=== PATIENT | female | born 1960 | race Caucasian/White ===

== ENCOUNTER 2020-04-25 14:20 | Outpatient (REF) | payer MEDICARE, SELFPAY ==
[2020-04-25 15:00] LABS: MANUAL DIFF FLAG NO
[2020-04-25 15:04] LABS: Basophils Percent Auto 0.2 % (0-2); Eosinophils Absolute Auto 0.1 X10*3/uL (0.0-0.4); Eosinophils Percent Auto 1.4 % (0-4); Hematocrit 35.3 % (37-47); Hemoglobin 10.4 g/dl (12.0-16.0); Imm Gran Abs Auto 0.02 X10*3/uL (0.00-0.03); Imm Gran Pct Auto 0.2 % (0.0-0.4); Lymphocytes Absolute Auto 2.2 X10*3/uL (1.2-4.9); Lymphocytes Percent Auto 27.4 % (20-40); Mean Corpuscular HGB Conc 29.5 g/dl (31.0-35.0); Mean Corpuscular Hemoglobin 25.4 pg (27.0-33.0); Mean Corpuscular Volume 86.3 fL (80-98); Mean Platelet Volume 10.4 fL (9.4-12.3); Monocytes Absolute Auto 0.6 X10*3/uL (0.1-1.2); Monocytes Percent Auto 7.7 % (2-11); Neutrophils Absolute Auto 5.1 X10*3/uL (2.0-8.3); Neutrophils Percent Auto 63.1 % (45-73); Platelet Count 262 X10*3/uL (160-400); Red Blood Count 4.09 X10*6/uL (4.20-5.50); Red Cell Distribution Width 15.9 % (11.0-16.0)
[2020-04-25 15:08] LABS: Estimated Average Glucose 157 mg/dL; Hemoglobin A1C 151.2579 umol/L; Hemoglobin A1c % 7.1 %
[2020-04-25 15:22] LABS: Alanine Aminotransferase 30 U/L (0-31); Alkaline Phosphatase 130 U/L (39-117); Anion Gap 13 (12-20); Aspartate Amino Transferase 38 U/L (5-31); Bilirubin Total 0.6 mg/dL (0.0-1.0); Blood Urea Nitrogen 10 mg/dL (9-16); Calcium 8.8 mg/dL (8.4-10.2); Carbon Dioxide 34 mmol/L (22-29); Chloride 96 mmol/L (96-108); Estimated Glomerular Filt Rate > 60; Glucose Random 121 mg/dL (60-115); Magnesium 2.2 mg/dL (1.6-2.6); Potassium 3.7 mmol/l (3.3-5.1); Sodium 139 mmol/L (135-145); Total Protein 7.6 g/dL (6.5-8.0)
[2020-04-25 15:29] LABS: B Type Natriuretic Peptide 66 pg/mL (<100)
[2020-04-25 15:43] LABS: Vitamin D 25-OH Total 21.5 ng/mL (>30)
[2020-04-25 15:51] LABS: Vitamin B12 469 pg/mL (200-900)
[2020-04-25 15:57] LABS: Folate 12.5 ng/mL (> or = 4.0)
[2020-04-28 07:32] LABS: Zinc 73 mcg/dL (60-130)
== END 2020-04-25 14:21 | disposition home or self-care (01) ==
LOC: HO.LAB 14:20
PROVIDERS: Absent Provider Psychiatry & Neurology Psychiatry; PCP Internal Medicine; Visit Provider Internal Medicine Geriatric Medicine
DX: M62.81 Muscle weakness (generalized) (principal); R26.81 Unsteadiness on feet; I50.9 Heart failure, unspecified; Z79.899 Other long term (current) drug therapy
CPT/HCPCS: 36415; 80053; 82306; 82607; 82746; 83036; 83735; 83880; 84443; 84630; 85025

== ENCOUNTER 2021-04-20 10:09 | Outpatient (REF) | payer MEDICARE, SELFPAY ==
[2021-04-20 10:30] LABS: MANUAL DIFF FLAG NO
[2021-04-20 10:36] LABS: Basophils Percent Auto 0.3 % (0-2); Eosinophils Absolute Auto 0.1 X10*3/uL (0.0-0.4); Eosinophils Percent Auto 1.8 % (0-4); Hematocrit 29.5 % (37.0-47.0); Hemoglobin 8.9 g/dl (12.0-16.0); Imm Gran Abs Auto 0.05 X10*3/uL (0.00-0.03); Imm Gran Pct Auto 0.7 % (0.0-0.4); Lymphocytes Absolute Auto 1.7 X10*3/uL (1.2-4.9); Lymphocytes Percent Auto 22.7 % (20-40); Mean Corpuscular HGB Conc 30.2 g/dl (31.0-35.0); Mean Corpuscular Hemoglobin 27.3 pg (27.0-33.0); Mean Corpuscular Volume 90.5 fL (80.0-98.0); Mean Platelet Volume 9.5 fL (9.4-12.3); Monocytes Absolute Auto 0.5 X10*3/uL (0.1-1.2); Neutrophils Absolute Auto 4.9 x10*3/uL (2.0-8.3); Neutrophils Percent Auto 67.5 % (45-73); Platelet Count 202 X10*3/uL (160-400); Red Blood Count 3.26 X10*6/uL (4.20-5.50); Red Cell Distribution Width 14.7 % (11.0-16.0); White Blood Count 7.3 X10*3/uL (4.8-10.8)
[2021-04-20 10:51] LABS: Anion Gap 13 (12-20); Blood Urea Nitrogen 11 mg/dL (9-16); Calcium 9.2 mg/dL (8.4-10.2); Carbon Dioxide 34 mmol/L (22-29); Chloride 95 mmol/L (96-108); Estimated Glomerular Filt Rate 58; Magnesium 2.1 mg/dL (1.6-2.6); Potassium 3.7 mmol/L (3.3-5.1); Sodium 138 mmol/L (135-145)
== END 2021-04-20 10:10 | disposition home or self-care (01) ==
LOC: HO.LAB 10:09
PROVIDERS: PCP Internal Medicine; Visit Provider Internal Medicine Geriatric Medicine
DX: E87.6 Hypokalemia (principal); R53.81 Other malaise
CPT/HCPCS: 36415; 80051; 82310; 82565; 83735; 84520; 85025

== ENCOUNTER 2021-09-21 07:35 | Outpatient (REF) | payer MEDICARE, SELFPAY ==
[2021-09-21 07:47] LABS: MANUAL DIFF FLAG NO
[2021-09-21 08:02] LABS: Basophils Percent Auto 0.3 % (0-2); Eosinophils Absolute Auto 0.2 X10*3/uL (0.0-0.4); Eosinophils Percent Auto 1.9 % (0-4); Hematocrit 28.4 % (37.0-47.0); Hemoglobin 8.4 g/dl (12.0-16.0); Imm Gran Abs Auto 0.03 X10*3/uL (0.00-0.03); Imm Gran Pct Auto 0.4 % (0.0-0.4); Lymphocytes Absolute Auto 1.9 X10*3/uL (1.2-4.9); Lymphocytes Percent Auto 23.8 % (20-40); Mean Corpuscular HGB Conc 29.6 g/dl (31.0-35.0); Mean Corpuscular Hemoglobin 24.2 pg (27.0-33.0); Mean Corpuscular Volume 81.8 fL (80.0-98.0); Mean Platelet Volume 9.8 fL (9.4-12.3); Monocytes Absolute Auto 0.6 X10*3/uL (0.1-1.2); Monocytes Percent Auto 7.7 % (2-11); Neutrophils Absolute Auto 5.2 x10*3/uL (2.0-8.3); Neutrophils Percent Auto 65.9 % (45-73); Platelet Count 198 X10*3/uL (160-400); Red Blood Count 3.47 X10*6/uL (4.20-5.50); Red Cell Distribution Width 16.1 % (11.0-16.0); White Blood Count 7.9 X10*3/uL (4.8-10.8)
[2021-09-21 08:33] LABS: Alanine Aminotransferase 17 U/L (0-31); Albumin Level 3.7 g/dL (3.5-5.0); Alkaline Phosphatase 91 U/L (39-117); Anion Gap 15 (12-20); Aspartate Amino Transferase 17 U/L (5-31); Bilirubin Total 0.5 mg/dL (0.0-1.0); Blood Urea Nitrogen 14 mg/dL (9-16); Calcium 9.1 mg/dL (8.4-10.2); Carbon Dioxide 29 mmol/L (22-29); Chloride 98 mmol/L (96-108); Cholesterol 175 mg/dL; Estimated Glomerular Filt Rate 58; Glucose Fasting 140 mg/dL (60-99); HDL Cholesterol 59 mg/dL; LDL Cholesterol Calculated 95 mg/dl; Potassium 3.8 mmol/L (3.3-5.1); Sodium 138 mmol/L (135-145); Total Protein 7.1 g/dL (6.5-8.0); Triglycerides 106 mg/dL
[2021-09-21 08:54] LABS: Vitamin D 25-OH Total 30.7 ng/mL (>30)
[2021-09-21 09:16] LABS: Creatinine Urine 86.26 mg/dL; Microalbum/Creatinine Ratio Ur 11.5 ug/mg cr
== END 2021-09-21 07:36 | disposition home or self-care (01) ==
LOC: HO.LAB 07:35
PROVIDERS: PCP Internal Medicine; Visit Provider Internal Medicine
DX: E78.5 Hyperlipidemia, unspecified (principal); D64.9 Anemia, unspecified; M51.36 Other intervertebral disc degeneration, lumbar region; N18.9 Chronic kidney disease, unspecified; E11.9 Type 2 diabetes mellitus without complications; E55.9 Vitamin D deficiency, unspecified
CPT/HCPCS: 36415; 80053; 80061; 82043; 82306; 85025

== ENCOUNTER 2021-10-10 12:55 | Outpatient (REF) | payer MEDICARE, SELFPAY ==
--- NOTE | ~2021-10-10 | MM_ITS ---
EXAMINATION: MM SCREENING DIGITAL BREAST TOMOSYNTHESIS, BILATERAL CLINICAL INFORMATION: Screening. Asymptomatic. The lifetime risk of breast cancer based on the Tyrer-Cuzick Model is 5%. COMPARISON: Mammography: 08/06/2010 TECHNIQUE: Digital breast tomosynthesis is performed in both the craniocaudal and mediolateral oblique views along with computer-aided detection (CAD). Synthesized 2D images are generated from the tomosynthesis. Additional bilateral MLO views are provided. FINDINGS: There are scattered areas of fibroglandular density (ACR BI-RADS breast composition Category b). There are no significant masses, abnormal calcifications, or other abnormalities. Parenchymal pattern is similar to prior exam. The axilla and skin contours are unremarkable. MM/MM tomosynthesis screening BI IMPRESSION: No mammographic evidence of malignancy. ASSESSMENT: BI-RADS 1: Negative RECOMMENDATION: Routine annual mammography screening. This patient's information was entered into a reminder system with a target due date for their next mammogram.
== END 2021-10-10 12:56 | disposition home or self-care (01) ==
LOC: HO.MAMMO 12:55
PROVIDERS: PCP Internal Medicine; Visit Provider Internal Medicine
DX: Z12.31 Encounter for screening mammogram for malignant neoplasm of breast (principal)
CPT/HCPCS: 77063; 77067

== ENCOUNTER 2021-10-24 12:12 | Outpatient (REF) | payer MEDICARE, SELFPAY ==
[2021-10-24 13:22] LABS: Amphetamine Screen Urine Not Detected (Not Detect)
[2021-10-24 13:26] LABS: Amphetamine Screen Urine Not Detected (Not Detect); Barbiturates, Urine Not Detected (Not Detect); Benzodiazepines Screen Urine Not Detected (Not Detect); Cannabinoid Screen Urine Not Detected (Not Detect); Cocaine Screen Urine Not Detected (Not Detect); Fentanyl, urine Not Detected (Not Detect); Opiate Screen Urine Not Detected (Not Detect); Phencyclidine Screen Urine Not Detected (Not Detect)
[2021-11-02 07:23] LABS: Lorazepam GCMS Urine 548
[2021-11-02 07:25] LABS: Noroxycodone, Ur 947; Oxymorphone, Ur 679
[2021-11-02 07:26] LABS: Oxycodone, Ur 588
[2021-11-02 07:27] LABS: Codeine, Ur NEGATIVE; Hydrocodone, Ur NEGATIVE
[2021-11-02 07:28] LABS: Alphahydroxymidazolam,GCMS Ur NEGATIVE; Alphahydroxytriazolam, GCMS Ur NEGATIVE; Alprazolam, GCMS Urine NEGATIVE; Aminoclonazepam, GCMS Urine NEGATIVE; Flurazepam Metabolite,GCMS Ur NEGATIVE; Hydromorphone, Ur NEGATIVE; Morphine, Ur NEGATIVE; Nordiazepam, GCMS Urine NEGATIVE; Norhydrocodone, Ur NEGATIVE; Oxazepam, GCMS Urine NEGATIVE; Temazepam, GCMS Urine NEGATIVE
== END 2021-10-24 12:13 | disposition home or self-care (01) ==
LOC: HO.LAB 12:12
PROVIDERS: Visit Provider Internal Medicine
DX: F41.9 Anxiety disorder, unspecified (principal); F11.20 Opioid dependence, uncomplicated
CPT/HCPCS: 80307; 80346; 80364; 80365

== ENCOUNTER 2021-11-22 15:14 | Outpatient (REF) | payer MEDICARE, SELFPAY ==
--- NOTE | ~2021-11-22 | XR_ITS ---
EXAMINATION: XR CHEST CLINICAL INFORMATION: Shortness of breath COMPARISON: Previous chest x-ray October 2012 TECHNIQUE: 2 views of the chest were obtained. FINDINGS: No significant abnormality is noted involving the heart, lungs, mediastinum, bony thorax or soft tissues. XR/XR chest 2V IMPRESSION: Unremarkable examination.
[2021-11-22 15:33] LABS: MANUAL DIFF FLAG NO
[2021-11-22 15:43] LABS: Basophils Percent Auto 0.2 % (0-2); Eosinophils Absolute Auto 0.1 X10*3/uL (0.0-0.4); Eosinophils Percent Auto 1.6 % (0-4); Hematocrit 29.2 % (37.0-47.0); Hemoglobin 8.4 g/dl (12.0-16.0); Imm Gran Abs Auto 0.04 X10*3/uL (0.00-0.03); Imm Gran Pct Auto 0.5 % (0.0-0.4); Lymphocytes Absolute Auto 1.9 X10*3/uL (1.2-4.9); Lymphocytes Percent Auto 23.2 % (20-40); Mean Corpuscular HGB Conc 28.8 g/dl (31.0-35.0); Mean Corpuscular Hemoglobin 23.2 pg (27.0-33.0); Mean Corpuscular Volume 80.7 fL (80.0-98.0); Mean Platelet Volume 9.6 fL (9.4-12.3); Monocytes Absolute Auto 0.5 X10*3/uL (0.1-1.2); Monocytes Percent Auto 6.4 % (2-11); Neutrophils Absolute Auto 5.5 x10*3/uL (2.0-8.3); Neutrophils Percent Auto 68.1 % (45-73); Platelet Count 215 X10*3/uL (160-400); Red Blood Count 3.62 X10*6/uL (4.20-5.50); Red Cell Distribution Width 16.8 % (11.0-16.0)
[2021-11-22 15:47] LABS: D Dimer High Sensitivity 153 NG/ML
[2021-11-22 16:07] LABS: Anion Gap 12 (12-20); Blood Urea Nitrogen 13 mg/dL (9-16); Calcium 8.8 mg/dL (8.4-10.2); Carbon Dioxide 32 mmol/L (22-29); Chloride 100 mmol/L (96-108); Estimated Glomerular Filt Rate 54; Glucose Random 164 mg/dL (60-115); Potassium 3.7 mmol/L (3.3-5.1); Sodium 140 mmol/L (135-145)
[2021-11-22 16:10] LABS: B Type Natriuretic Peptide 29 pg/mL (<100)
[2021-11-22 16:11] LABS: Appearance Urine CLEAR; Color Urine YELLOW; Glucose Urine UA 100 MG/DL (NEG); Leukocyte Esterase Urine NEG (NEG); Nitrite Urine NEG (NEG); PH 6.5 (5.0-8.0); Specific Gravity - Urine 1.015 (1.005-1.025); Urine Blood NEG (NEG); Urine Ketones NEG (NEG); Urine Protein NEG (NEG-TRACE)
== END 2021-11-22 15:15 | disposition home or self-care (01) ==
LOC: HO.LAB 15:14
PROVIDERS: PCP Internal Medicine; Visit Provider Nurse Practitioner Family
DX: R06.02 Shortness of breath (principal); I50.9 Heart failure, unspecified; R30.0 Dysuria
CPT/HCPCS: 36415; 71046; 80048; 81003; 83880; 85025; 85379

== ENCOUNTER 2021-12-05 15:00 | Outpatient (REF) | payer MEDICARE, SELFPAY ==
--- NOTE | ~2021-12-05 | XR_ITS ---
EXAMINATION: XR SINUSES CLINICAL INFORMATION: Nasal congestion and polyps. COMPARISON: None TECHNIQUE: Hutchison, Martinez, lateral, and SMV FINDINGS: Paranasal sinuses appear clear without air-fluid levels. No fractures are identified. The nasal septum appears midline. No radiodense foreign bodies. XR/XR sinus min 3V IMPRESSION: Unremarkable examination.
== END 2021-12-05 15:01 | disposition home or self-care (01) ==
LOC: HO.XRAY 15:00
PROVIDERS: PCP Internal Medicine; Visit Provider Nurse Practitioner Family
DX: R09.81 Nasal congestion (principal); J33.9 Nasal polyp, unspecified
CPT/HCPCS: 70220

== ENCOUNTER 2022-01-08 08:36 | Outpatient (REF) | payer MEDICARE, SELFPAY ==
--- NOTE | ~2022-01-08 | XR_ITS ---
EXAMINATION: XR HIP, RIGHT CLINICAL INFORMATION: Right hip pain COMPARISON: CT pelvis 05/11/2015 TECHNIQUE: Two views of the right hip. FINDINGS: No visible fracture or dislocation or destructive process. Normal bony mineralization. No appreciable joint narrowing or visible erosive change or chondrocalcinosis. Images are mildly underpenetrated possibly related to overlying soft tissues. The SI joints and pubis are unremarkable. XR/XR hip RT min 2V IMPRESSION: Unremarkable right hip.
[2022-01-08 09:45] LABS: Alanine Aminotransferase 20 U/L (0-31); Albumin Level 3.8 g/dL (3.5-5.0); Alkaline Phosphatase 97 U/L (39-117); Anion Gap 14 (12-20); Aspartate Amino Transferase 21 U/L (5-31); Bilirubin Total < 0.2 mg/dL (0.0-1.0); Blood Urea Nitrogen 13 mg/dL (9-16); Calcium 8.5 mg/dL (8.4-10.2); Carbon Dioxide 31 mmol/L (22-29); Chloride 100 mmol/L (96-108); Cholesterol 173 mg/dL; Estimated Glomerular Filt Rate > 60; Glucose Fasting 104 mg/dL (60-99); HDL Cholesterol 59 mg/dL; LDL Cholesterol Calculated 95 mg/dl; Potassium 3.7 mmol/L (3.3-5.1); Sodium 141 mmol/L (135-145); Total Protein 7.3 g/dL (6.5-8.0); Triglycerides 95 mg/dL
[2022-01-08 10:04] LABS: Vitamin D 25-OH Total 29.8 ng/mL (>30)
== END 2022-01-08 08:37 | disposition home or self-care (01) ==
LOC: HO.XRAY 08:36
PROVIDERS: PCP Internal Medicine; Visit Provider Internal Medicine
DX: E11.9 Type 2 diabetes mellitus without complications (principal); E78.5 Hyperlipidemia, unspecified; E55.9 Vitamin D deficiency, unspecified; M25.551 Pain in right hip; Z79.4 Long term (current) use of insulin
CPT/HCPCS: 36415; 73502; 80053; 80061; 82306

== ENCOUNTER 2022-06-19 13:33 | Outpatient (REF) | payer MEDICARE, SELFPAY ==
--- NOTE | ~2022-06-19 | CT_ITS ---
EXAMINATION: CT ABDOMEN AND PELVIS WITH CONTRAST CLINICAL INFORMATION: Right lower quadrant abdominal swelling, mass and lump. COMPARISON: None TECHNIQUE: Multidetector volumetric images were obtained from the superior aspect of the liver through the pubic symphysis following administration 100 mL of Omnipaque 350 intravenous contrast. Sagittal and coronal reformatted images were obtained on the technologist's workstation. Oral contrast: No This CT examination was performed using dose optimization techniques as appropriate, variously including the following: *Automated exposure control *Adjustment of mA and/or kV according to patient size (this includes techniques or standardized protocols for targeted exams where dose is matched to indication/reason for exam; i.e. extremities or head) *Use of iterative reconstruction technique DLP: 1139 mGy-cm FINDINGS: LUNG BASES: The visualized lung bases are unremarkable. LIVER, GALLBLADDER, AND BILIARY TREE: The liver is normal in size, shape, and attenuation. No focal hepatic lesion or biliary ductal dilatation is present. The gallbladder has been surgically removed. PANCREAS: Unremarkable. SPLEEN: Unremarkable. ADRENAL GLANDS: Unremarkable. KIDNEYS AND URETERS: The kidneys are normal in size, shape, and attenuation. No hydronephrosis, hydroureter, or calculi seen. No perinephric stranding. BLADDER: Unremarkable. GASTROINTESTINAL TRACT: There is scattered stool and gas seen throughout the colon without significant distention. Oral contrast opacified small bowel loops are normal caliber. Appendix normal caliber. ABDOMINAL WALL: No significant hernia is appreciated. LYMPH NODES: Normal. VASCULAR: Unremarkable. PELVIC VISCERA: Unremarkable. OSSEOUS STRUCTURES: No aggressive lytic or sclerotic process seen. There is moderate ventral spondylosis lower dorsal spine. CT/CT abdomen pelvis w IV con IMPRESSION: 1. No acute intra-abdominal process seen. 2. Mild constipation. Normal appendix. 3. Gallbladder has been surgically removed. Fleischner guidelines were followed.
[2022-06-19] MEDS: iohexoL 350 MG/ML 100 ML INFUS..BTL IV (16:32)
[2022-06-19] MEDS: Barium Sulfate Oral (Vanilla) 450 ML ORAL.SUSP 900 ML PO (16:33)
[2022-06-20 10:07] LABS: Creatinine POC 0.6 mg/dL (0.5-1.4); GFR POC > 60
== END 2022-06-19 13:34 | disposition home or self-care (01) ==
LOC: HO.CT 13:33
PROVIDERS: PCP Internal Medicine; Visit Provider Internal Medicine
DX: R10.31 Right lower quadrant pain (principal); R19.03 Right lower quadrant abdominal swelling, mass and lump
CPT/HCPCS: 74177; 82565; Q9967

== ENCOUNTER 2022-07-04 05:38 | Outpatient (REF) | payer MEDICARE, SELFPAY ==
[2022-07-04 09:01] LABS: MANUAL DIFF FLAG NO
[2022-07-04 09:02] LABS: Basophils Percent Auto 0.4 % (0-2); Eosinophils Absolute Auto 0.1 X10*3/uL (0.0-0.4); Eosinophils Percent Auto 1.4 % (0-4); Hematocrit 28.4 % (37.0-47.0); Hemoglobin 8.1 g/dl (12.0-16.0); Imm Gran Abs Auto 0.02 X10*3/uL (0.00-0.03); Imm Gran Pct Auto 0.2 % (0.0-0.4); Lymphocytes Absolute Auto 2.4 X10*3/uL (1.2-4.9); Lymphocytes Percent Auto 28.7 % (20-40); Mean Corpuscular HGB Conc 28.5 g/dl (31.0-35.0); Mean Corpuscular Hemoglobin 22.1 pg (27.0-33.0); Mean Corpuscular Volume 77.6 fL (80.0-98.0); Mean Platelet Volume 9.8 fL (9.4-12.3); Monocytes Absolute Auto 0.6 X10*3/uL (0.1-1.2); Monocytes Percent Auto 7.3 % (2-11); Neutrophils Absolute Auto 5.3 x10*3/uL (2.0-8.3); Platelet Count 257 X10*3/uL (160-400); Red Blood Count 3.66 X10*6/uL (4.20-5.50); White Blood Count 8.5 X10*3/uL (4.8-10.8)
[2022-07-04 09:39] LABS: Cholesterol 163 mg/dL; HDL Cholesterol 55 mg/dL; LDL Cholesterol Calculated 84 mg/dl; Triglycerides 122 mg/dL
[2022-07-04 09:41] LABS: Alanine Aminotransferase 25 U/L (0-31); Albumin Level 3.9 g/dL (3.5-5.0); Alkaline Phosphatase 115 U/L (39-117); Anion Gap 17 (12-20); Aspartate Amino Transferase 24 U/L (5-31); Bilirubin Total 0.4 mg/dL (0.0-1.0); Blood Urea Nitrogen 15 mg/dL (9-16); Calcium 8.9 mg/dL (8.4-10.2); Carbon Dioxide 27 mmol/L (22-29); Chloride 99 mmol/L (96-108); Cholesterol 167 mg/dL; Estimated Glomerular Filt Rate 54; Glucose Random 211 mg/dL (60-115); HDL Cholesterol 56 mg/dL; Iron 30 mcg/dL (30-160); LDL Cholesterol Calculated 87 mg/dl; Percent Iron Saturation 9 % (15-50); Potassium 4.1 mmol/L (3.3-5.1); Sodium 139 mmol/L (135-145); Total Iron Binding Capacity 343 mcg/dL (228-428); Total Protein 7.3 g/dL (6.5-8.0); Triglycerides 123 mg/dL; Unsaturated Iron Binding 313 ug/dL
[2022-07-04 09:56] LABS: Vitamin D 25-OH Total 31.3 ng/mL (>30)
[2022-07-04 10:06] LABS: Creatinine Urine 95.11 mg/dL; Microalbum/Creatinine Ratio Ur 15.7 ug/mg cr
[2022-07-04 10:10] LABS: Folate 10.3 ng/mL (> or = 4.0); Vitamin B12 468 pg/mL (200-900); Vitamin D 25-OH Total 31.6 ng/mL (>30)
== END 2022-07-04 05:39 | disposition home or self-care (01) ==
LOC: HO.LHD 05:38
PROVIDERS: Visit Provider Internal Medicine
DX: E55.9 Vitamin D deficiency, unspecified (principal); E78.5 Hyperlipidemia, unspecified; E11.9 Type 2 diabetes mellitus without complications; E53.8 Deficiency of other specified B group vitamins; J44.9 Chronic obstructive pulmonary disease, unspecified; D64.9 Anemia, unspecified
CPT/HCPCS: 36415; 80053; 80061; 82043; 82306; 82607; 82746; 83540; 85025

== ENCOUNTER 2022-07-16 13:00 | Outpatient (RCR) | payer MEDICARE, SELFPAY ==
[2022-07-16 13:25] VITALS: BP 155/66; PULSE 86; TEMP 36.4; O2SAT 96; BMI 51.3
--- NOTE | 2022-07-16 14:16 | MHC.HEMONCMA ---
patient seen today for followup for low hemoglobin levels, VSS, 4-6 week followup.
--- NOTE | 2022-07-16 14:45 | P.CNHO_ITS ---
Subjective - Subjective Chief complaint: Anemia Patient: new to practice Consult date: 07/16/22 Primary Care Provider: Cathleen Rivera MD Medical Summary: Diagnosis: Iron deficiency anemia HPI - Consult Narrative Reason for consult: Anemia Narrative: Lashay Stroud is a 62 year old woman referred for anemia. She has longstanding anemia dating back to at least 2019. Her hemoglobin has gradually declined from 10 gram/dL to 8.1 gram/dL in June 2022. She has started taking oral iron supplementation for 3 days ago. She is tolerating it well. She has been told of anemia for a long time but this is the 1st time she was is taking iron. She never received blood transfusion. She says there is family history with her mother being anemic as well. She had a colonoscopy in the remote past when she turned 49 years. She denies any hematochezia, melena or change in bowel habits. She has COPD and is oxygen dependent. She is unable to undergo any surgical procedures at this time because bad lungs. She is being scheduled to undergo pulmonary rehab. She denies loss of appetite or weight loss. No fever, chills or recent infections. Review of Systems - Constitutional Reports as per HPI, Reports fatigue, Reports malaise, Denies weight loss - Cardiovascular Reports no additional cardiovascular complaints - Respiratory Reports no additional respiratory complaints - Gastrointestinal Reports no additional gastrointestinal complaints [facility] Medical History: Medical History (Last Reviewed 07/16/22 @ 13:30 by Fe Reyes MA) Asthma-COPD overlap syndrome Brain cyst CKD (chronic kidney disease) Essential hypertension MARISSA (generalized anxiety disorder) Hyperlipidemia LDL goal <100 Hypovitaminosis D Lumbar degenerative disc disease Mild recurrent major depression Morbid obesity with BMI of 50.0-59.9, adult Neuropathy Postmenopausal Type 2 diabetes mellitus, with long-term current use of insulin Family History: Family History (Last Reviewed 07/16/22 @ 13:30 by Fe Reyes MA) Mother Diabetes CHF (congestive heart failure) Father Diabetes Hypertension Family/Other Mental health disorder Surgical History: Surgical History (Last Reviewed 07/16/22 @ 13:30 by Fe Reyes MA) History of bladder surgery History of carpal tunnel surgery History of cholecystectomy History of cystocele History of hysterectomy History of tubal ligation Social History: Social History (Last Updated 07/16/22 @ 13:31 by Fe Reyes MA) Living Situation History: Household Members: Family Household Members: Friend(s) Housing: House Alcohol History Details: 1. How often do you have a drink containing alcohol?: a. Never Tobacco History: Patient Tobacco Use Status: Former Tobacco user Tobacco use type: Cigarette e-Cigarette/Vaping Use: Never Used Second Hand Smoke Exposure: No Domestic Abuse History: Have you been hit, kicked, punched, or otherwise hurt by someone within the past year? If so, by whom?: No Do you feel safe in your current relationship?: No Current Relationship Homicidal Assessment: Do you have thoughts of harming others: None Do you have a plan to hurt others: No Plan Do you have the means to hurt others: No Nutrition Assessment: Recently lost weight without trying: No Occupation Assessmet: service: No Current occupational status: disabled Home Medications and Allergies Home Medications Medication Instructions Recorded Confirmed Type budesonide-formoterol HFA 160 2 puff inhalation BID 09/18/21 06/17/22 History mcg-4.5 mcg/actuation aerosol inhaler (Symbicort) cholecalciferol (vitamin D3) 50 50 mcg PO DAILY 09/18/21 06/17/22 History mcg (2,000 unit) capsule insulin syringe-needle U-100 1 mL #10 ea 09/18/21 06/17/22 History 31 gauge x 5/16 (BD Insulin Syringe Ultra-Fine) loratadine 10 mg tablet 10 mg PO DAILY 09/18/21 06/17/22 History lorazepam 2 mg tablet 2 mg PO BID PRN 09/18/21 06/17/22 History oxcarbazepine 150 mg tablet 150 mg PO BID 09/18/21 06/17/22 History oxcarbazepine 600 mg tablet 600 mg PO BID 09/18/21 06/17/22 History spironolactone 25 mg tablet 25 mg PO DAILY 09/18/21 06/17/22 History Allergies Allergy/AdvReac Type Severity Reaction Status Date / Time lisinopril Allergy Severe headaches Verified 06/17/22 15:09 aspirin [ASPIRIN] Allergy Intermediate UPSET Verified 06/17/22 15:09 STOMACH/HX OF ULCERS 24 YEARS AGO latex Allergy Intermediate Rash Verified 06/17/22 15:09 metolazone Allergy Intermediate rash, Verified 06/17/22 15:09 upset stomach zolpidem [From AMBIEN] AdvReac Unknown PT Verified 06/17/22 15:09 SLEEPWALKING [employer]IRY [employer]ODUCTS Allergy Severe PAIN, Uncoded 06/17/22 15:09 NAUSEA, BLOATING, VOMITING Physical Exam Vital signs: Vital Signs Temp 97.6 F 07/16/22 13:25 Pulse 86 07/16/22 13:25 BP 155/66 H 07/16/22 13:25 Pulse Ox 96 07/16/22 13:25 O2 Del Method Nasal Cannula 07/16/22 13:25 Intake & Output 07/15/22 07/16/22 07/16/22 18:59 06:59 18:59 Other: Weight 144.3 kg [place] Weight in Grams [id number] Weight 144.3 kg - Constitutional Present: no acute distress - Routine HEENT Exam Head: Present: normal inspection Eye: Present: PERRL - Routine Neck Exam Present: supple. Absent: lymphadenopathy - Routine Respiratory Exam Present: decreased breath sounds. Absent: accessory muscle use - Routine Cardiovascular Exam Cardiovascular: Present: S1, S2 Hem/Onc Consult Result - Labs Labs: Laboratory Tests 07/04/22 07/04/22 08:30 08:30 WBC 8.5 RBC 3.66 L Hgb 8.1 L Hct 28.4 L MCV 77.6 L RDW 17.0 H Plt Count 257 BUN 15 Creatinine 1.04 % Saturation 9 L Total Bilirubin 0.4 AST 24 ALT 25 Alkaline Phosphatase 115 Assessment and Plan Patient Active problem list reviewed?: Yes (1) Anemia Status: Chronic Assessment and plan: 1. This is a 62-year-old postmenopausal woman with chronic anemia, appears to be iron deficiency predominantly. She has just been started on oral iron supplementation ferrous sulfate 325 mg b.i.d.. She is tolerating it well. She reports no overt symptoms of GI blood losses but she is overdue for colonoscopy. In the last year she has been homebound because of her pulmonary status and obesity. She is trying to receive pulmonary rehabilitation at home. She has normal kidney and liver functions. There is no evidence of hemolysis. She has normal vitamin B12 and folic acid levels. Thyroid functions are normal. If necessary, she will be ordered parenteral iron therapy. Further hematological workup will be performed in a month. I thank you very much for this consultation. - Time Spent With Patient Time Spent with Patient (in minutes): 30
== END 2022-10-24 | disposition home or self-care (01) ==
LOC: HO.ONC 13:00
PROVIDERS: PCP Internal Medicine; Visit Provider Internal Medicine
DX: D50.9 Iron deficiency anemia, unspecified (principal); Z79.899 Other long term (current) drug therapy
CPT/HCPCS: 99204

== ENCOUNTER 2022-10-02 14:56 | Outpatient (REF) | payer MEDICARE, SELFPAY ==
[2022-10-02 15:33] LABS: Anion Gap 11 (12-20); Blood Urea Nitrogen 11 mg/dL (9-16); Carbon Dioxide 29 mmol/L (22-29); Chloride 104 mmol/L (96-108); Estimated Glomerular Filt Rate > 60; Glucose Random 95 mg/dL (60-115); Sodium 140 mmol/L (135-145)
[2022-10-02 15:59] LABS: Erythrocyte Sedimentation Rate 42 MM/HR (0-20)
== END 2022-10-02 14:57 | disposition home or self-care (01) ==
LOC: HO.LNP 14:56
PROVIDERS: Visit Provider Internal Medicine Geriatric Medicine
DX: M10.9 Gout, unspecified (principal)
CPT/HCPCS: 80048; 84550; 85652

== ENCOUNTER 2022-10-24 18:01 | Emergency (ER) | payer MEDICARE, SELFPAY ==
[2022-10-24 18:33] VITALS: BMI 56.0
--- NOTE | 2022-10-24 18:59 | MHC.EDTECH ---
Covering Machine Operator called @1840. Demographic information given and transferred to Dr Jimenes. Covering Machine Operator declined case per Dr Jimenes. Awaiting Dr Jimenes to fill out Certificate.
--- NOTE | 2022-10-24 19:47 | ED_ITS ---
HPI - CPR General Chief Complaint: Cardiac Arrest/CPR Stated Complaint: CARDIAC ARREST Time Seen by Provider: 10/24/22 18:26 Source: EMS Mode of arrival: EMS Limitations: other History of Present Illness HPI narrative: Patient comes to emergency room via EMS in cardiac arrest. According to EMS, the family reported to them that the patient seemed to be short of breath, trying to use her inhaler without any relief. Patient became cyanotic and collapse, witnessed arrest. Family reported that they started CPR immediately. EMS took over patient's care at 17:30. According to EMS, patient was mostly knee systole, eventually PA. They report that for a few seconds they were able to palpate pulse but be within a few seconds it went back to asystole. They attempted intubation in the field, but due to the patient's body habitus, this was a very difficult intubation. An I gel was inserted, CPR continued and was brought to the emergency room. On arrival to the emergency room, patient was in asystole. Related Data Home Medications Medication Instructions Recorded Confirmed budesonide-formoterol HFA 160 2 puff inhalation BID 09/18/21 07/16/22 mcg-4.5 mcg/actuation aerosol inhaler (Symbicort) lorazepam 2 mg tablet 2 mg PO BID PRN Anxiety 09/18/21 07/16/22 oxcarbazepine 150 mg tablet 150 mg PO BID 09/18/21 07/16/22 oxcarbazepine 600 mg tablet 600 mg PO BID 09/18/21 07/16/22 fluticasone fur. 100 mcg-umeclid 1 puff inhalation DAILY 07/16/22 07/16/22 62.5 mcg-vilant 25 mcg inhalat.powder (Trelegy Ellipta) Previous Rx's Medication Instructions Recorded insulin glargine 100 unit/mL (3 105 unit (1.05 mL) topical BEDTIME 02/12/22 mL) subcutaneous pen (Lantus 90 days #94.5 mL Solostar U-100 Insulin) Humalog U-100 Insulin 100 unit/mL 30 unit (0.3 mL) subcut TID PRN 05/08/22 subcutaneous solution (insulin hyperglycemia 30 days #10 mL lispro) riboflavin (vitamin B2) 100 mg 100 mg PO BID 90 days #180 tabs 05/20/22 tablet (Vitamin B-2) simvastatin 40 mg tablet 40 mg PO BEDTIME 90 days #90 tabs 07/05/22 blood sugar diagnostic (OneTouch #100 ea 07/21/22 Verio test strips) losartan 100 mg tablet 100 mg PO DAILY 90 days #90 tabs 07/30/22 spironolactone 25 mg tablet 25 mg PO DAILY 90 days #90 tabs 08/04/22 torsemide 20 mg tablet 40 mg PO BID 90 days #360 tabs 08/18/22 albuterol sulfate 2.5 mg/3 mL 2.5 mg (3 mL) inhalation Q4H PRN 08/28/22 (0.083 %) solution for nebulization wheezing 60 days #180 mL ferrous sulfate 325 mg (65 mg 325 mg PO TID 30 days #90 tabs 09/06/22 iron) tablet cholecalciferol (vitamin D3) 50 50 mcg PO DAILY 90 days #90 caps 09/14/22 mcg (2,000 unit) capsule insulin syringe-needle U-100 1 mL #100 ea 09/14/22 31 gauge x 5/16 (BD Insulin Syringe Ultra-Fine) oxycodone-acetaminophen 5 mg-325 1 tab PO QID PRN pain 30 days #120 10/02/22 mg tablet (Percocet) tabs gabapentin 100 mg capsule 200 mg PO TID 30 days #180 caps 10/24/22 omeprazole 20 mg capsule,delayed 20 mg PO BID 90 days #180 caps 10/24/22 release Allergies Allergy/AdvReac Type Severity Reaction Status Date / Time lisinopril Allergy Severe headaches Verified 06/17/22 15:09 aspirin [ASPIRIN] Allergy Intermediate UPSET Verified 06/17/22 15:09 STOMACH/HX OF ULCERS 24 YEARS AGO latex Allergy Intermediate Rash Verified 06/17/22 15:09 metolazone Allergy Intermediate rash, Verified 06/17/22 15:09 upset stomach zolpidem [From AMBIEN] AdvReac Unknown PT Verified 06/17/22 15:09 SLEEPWALKING [employer]CTS Allergy Severe PAIN, Uncoded 06/17/22 15:09 NAUSEA, BLOATING, VOMITING Review of Systems Review of Systems: Yes Unobtainable due to mental condition PMFSH Past Medical History Medical History Asthma-COPD overlap syndrome Brain cyst CKD (chronic kidney disease) Essential hypertension MARISSA (generalized anxiety disorder) Hyperlipidemia LDL goal <100 Hypovitaminosis D Lumbar degenerative disc disease Mild recurrent major depression Morbid obesity with BMI of 50.0-59.9, adult Neuropathy Postmenopausal Type 2 diabetes mellitus, with long-term current use of insulin Surgical History History of bladder surgery History of carpal tunnel surgery History of cholecystectomy History of cystocele History of hysterectomy History of tubal ligation Family History Family History Mother Diabetes CHF (congestive heart failure) Father Diabetes Hypertension Family/Other Mental health disorder Social History Social History (Updated 07/16/22 @ 13:31 by Fe Reyes MA) Household Members: Family and Friend(s) Housing: House Alcohol intake: never Patient Tobacco Use Status: Former Tobacco user Tobacco use type: Cigarette e-Cigarette/Vaping Use: Never Used Second Hand Smoke Exposure: No Advance Directives: Yes Advance Directives on File: Yes Advance Directives Date on File: 01/07/22 service: No Current occupational status: disabled Cognitive needs: Yes Hearing needs: No Vision needs: Yes Physical Exam Vital Signs: Vital Signs: BMI result Body Mass Index 56.0 Const: Other: Appearance: Unresponsive Eyes: Fixed and dilated unresponsive to light ENT: Tongue laceration , large amount of frothy sputum and vomit in the oropharynx Neck: Normal inspection. Neck supple. No lymph nodes noted. No crepitus CVS: CPR in progress Respiratory: Being ventilated I gel/ambu bag Abdomen: Soft , distended Skin: Cold and mottled Extremities: No signs of injury Neuro: Unresponsive Psych: Unresponsive Medical Decision Making Medical Decision Making MDM Narrative: -patient received multiple doses of epinephrine, bicarbonate, CPR was in progress for 54 minutes. -I intubated the patient in the emergency room, difficult intubation, there was a large amount of vomit , blood -every 2 minutes when pulse was checked we did a bedside ultrasound/echo, no cardiac activity present, patient in asystole -time of called at 18:24 -cause of possibly pulmonary edema? -patient's family at bedside. Patient does not seem to have any history of drug abuse -I discussed the patient with the senior medical director, case was declined , case # [id number] Differential Diagnosis Differential Diagnoses: The differential diagnosis associated with the presentation includes (Pulmonary edema versus PE versus cardiac arrhythmia) Discharge Plan Discharge Clinical Impression: Cardiac arrest Patient Disposition: Prescriptions: No Action insulin glargine [Lantus Solostar U-100 Insulin] 100 unit/mL (3 mL) insulin pen 105 unit topical BEDTIME 90 Days Qty: 94.5 3RF insulin lispro [Humalog U-100 Insulin] 100 unit/mL solution 30 unit subcut TID PRN (Reason: hyperglycemia) 30 Days Qty: 10 1RF Rx Instructions: Use Insluin Sliding Scale 100-150 Use 24 Units 151-200 use 26 Units 201-250 use 27 Units 251-300 use 28 Units 301-350 use 29 Units 351-400 use 30 Units riboflavin (vitamin B2) [Vitamin B-2] 100 mg tablet 100 mg PO BID 90 Days Qty: 180 2RF simvastatin 40 mg tablet 40 mg PO BEDTIME 90 Days Qty: 90 1RF (DME) OneTouch Verio test strips Strip See Rx Instructions Not Applicable QID Qty: 100 3RF Rx Instructions: Use 1 strip three times a day losartan 100 mg tablet 100 mg PO DAILY 90 Days Qty: 90 1RF spironolactone 25 mg tablet 25 mg PO DAILY 90 Days Qty: 90 1RF torsemide 20 mg tablet 40 mg PO BID 90 Days Qty: 360 1RF albuterol sulfate 2.5 mg /3 mL (0.083 %) solution for nebulization 2.5 mg inhalation Q4H PRN (Reason: wheezing) 60 Days Qty: 180 3RF ferrous sulfate 325 mg (65 mg iron) tablet 325 mg PO TID 30 Days Qty: 90 1RF cholecalciferol (vitamin D3) 50 mcg (2,000 unit) capsule 50 mcg PO DAILY 90 Days Qty: 90 1RF (DME) insulin syringe-needle U-100 [BD Insulin Syringe Ultra-Fine] 1 mL 31 gauge x 5/16 syringe See Rx Instructions .ROUTE QID Qty: 100 2RF Rx Instructions: As directed oxycodone-acetaminophen [Percocet] 5-325 mg tablet 1 tab PO QID PRN (Reason: pain) 30 Days Qty: 120 0RF omeprazole 20 mg capsule,delayed release(DR/EC) 20 mg PO BID 90 Days Qty: 180 1RF gabapentin 100 mg capsule 200 mg PO TID 30 Days Qty: 180 0RF Trelegy Ellipta 100-62.5-25 mcg blister with device 1 puff inhalation DAILY lorazepam 2 mg tablet 2 mg PO BID PRN (Reason: Anxiety) oxcarbazepine 600 mg tablet 600 mg PO BID oxcarbazepine 150 mg tablet 150 mg PO BID budesonide-formoterol [Symbicort] 160-4.5 mcg/actuation HFA aerosol inhaler 2 puff inhalation BID
--- NOTE | 2022-10-24 20:01 | PC.NURSE ---
SPOKE WITH [facility] -ACCEPTED #[id number]
--- NOTE | 2022-10-24 21:08 | PC.NURSE ---
ET AND NG TUBE AND IV IO ACCESS WERE REMOVED. FAMILY IS STILL PRESENT
--- NOTE | 2022-10-24 21:55 | PC.NURSE ---
FAMILY HAS LEFT THE ED, PLAN TO CALL WITH HOME INFORMATION. PT HAS BEEN PLACED IN POST MORTEM BAG
[2022-10-27 09:22] LABS: Glucose, Whole Blood 246 mg/dL (60-115)
== END 2022-10-24 22:52 | disposition expired ==
PROVIDERS: Emergency Provider Emergency Medicine; PCP Internal Medicine
DX: I46.9 Cardiac arrest, cause unspecified (principal); E11.22 Type 2 diabetes mellitus with diabetic chronic kidney disease; I12.9 Hypertensive chronic kidney disease with stage 1 through stage 4 chronic kidney disease, or unspecified chronic kidney disease; N18.9 Chronic kidney disease, unspecified; J44.9 Chronic obstructive pulmonary disease, unspecified; E66.9 Obesity, unspecified; Z68.43 Body mass index [BMI] 50.0-59.9, adult; Z87.891 Personal history of nicotine dependence; Z79.4 Long term (current) use of insulin; Z79.02 Long term (current) use of antithrombotics/antiplatelets; Z79.899 Other long term (current) drug therapy
CPT/HCPCS: 82947; 96374; 96375; 99281; 99285; J0171